=== PATIENT | female | born 1995 | race Caucasian/White ===

== ENCOUNTER 2018-07-17 22:50 | Emergency (ER) | payer OTHER ==
[2018-07-17 22:59] VITALS: BP 122/68; PULSE 122; TEMP 99; BMI 23.9
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
[2018-07-18] MEDS ORDERED: HIV POST EXPOSURE PROPHYLAXIS KIT NR ONE (01:07)
[2018-07-18] MEDS ORDERED: DIPHTH,PERTUSS(ACELL),TET 0.5 ML DISP.SYRIN IM ONE (01:30)
[2018-07-18] MEDS ORDERED: AMOX TR/POT CLAV 500MG/125MG TABLETS (FP) PO ONE (01:30)
== END 2018-07-18 02:18 | disposition home or self-care (01) ==
LOC: JER 22:50
PROC: 3E0234Z Introduction of Serum, Toxoid and Vaccine into Muscle, Percutaneous Approach (ICD-10-PCS; principal; 2018-07-17)
PROC: 0JQP0ZZ Repair Left Lower Leg Subcutaneous Tissue and Fascia, Open Approach (ICD-10-PCS; 2018-07-17)
DX: S81.012A Laceration without foreign body, left knee, initial encounter (principal); Y04.1XXA Assault by human bite, initial encounter; Y92.488 Other paved roadways as the place of occurrence of the external cause; Y99.8 Other external cause status; Y93.89 Activity, other specified; Y07.9 Unspecified perpetrator of maltreatment and neglect
CPT/HCPCS: 12002-25; 90471; 90715; 99282-25

== ENCOUNTER 2024-01-04 16:17 | Emergency (ER) | payer OTHER ==
[2024-01-04 16:45] VITALS: BP 118/75; PULSE 84; RESP 16; TEMP 97.2
== END 2024-01-04 19:04 | disposition left against medical advice (07) ==
LOC: JERFT 16:17
DX: R51.9 Headache, unspecified (principal); Y04.8XXA Assault by other bodily force, initial encounter
CPT/HCPCS: 99283-25